=== PATIENT | male | born 1955 | race Caucasian/White ===

== ENCOUNTER 2021-07-09 14:15 | Inpatient (IN) | payer BC ==
[~2021-07-09] VITALS: Ht 175.3 cm; Wt 84.4 kg
[~2021-07-09 14:15] MED LIST: ZOFRAN ODT4 MG PO
[2021-07-09 14:20] VITALS: BP 135/65
[2021-07-09 15:02] LABS: HEMATOCRIT 36.9 % (42.0-52.0); HEMOGLOBIN 12.7 gm/dL (14.0-18.0); MCHC 34.4 g/dL (28.0-37.0); MCV 87.2 fL (80.0-100.0); MPV 8.1 fl. (7.2-11.1); NUCLEATED RBCS 0 /100WBC; PLATELET COUNT* 376 thou/uL (150-400); RBC 4.23 mil/uL (4.50-6.00); RDW-CV 13.8 % (10.5-14.5); WBC 13.2 thou/uL (4.0-11.0)
[2021-07-09 15:23] LABS: CREATININE 1.1 mg/dL (0.6-1.3)
[2021-07-09 15:27] LABS: ALBUMIN 2.6 g/dL (3.4-5.0); TOTAL BILIRUBIN 0.8 mg/dL (<0.1-1.0); TOTAL PROTEIN 7.4 g/dL (6.4-8.2)
[2021-07-09 15:36] LABS: ABSOLUTE LYMPHOCYTES 0.8 thou/uL (0.8-5.3); ABSOLUTE MONOCYTES 0.8 thou/uL (0.0-1.2); ABSOLUTE NEUTROPHILS 11.6 thou/uL (1.6-8.1)
[2021-07-09 15:37] LABS: PLATELET ESTIMATE ADEQUATE
--- NOTE | 2021-07-09 15:56 | EKG ---
[place] [address] ELECTROCARDIOGRAM REPORT Name: JOSE CASTILLO Room: [facility].#: [id number] Admission: Attend Phys: Discharge: Date of : 57 Date of Service: 07/09/21 1447 Report #: [id number] THIS REPORT FOR: //name// [facility] ED Test Date: 2021-07-09 Test Time: 14:47:57 Pat Name: JOSE CASTILLO Department: Room: Gender: M Journeyman Millwright: DARLEEN : 1955 Requested By: Ishan Welch Order Number: [id number] MD: Blaine Joya Measurements Intervals [place] Rate: 85 P: 48 [place]: 137 QRS: 27 QRSD: 92 T: 73 QT: 350 QTc: 417 Interpretive Statements Sinus rhythm Mild ST segment elevation in the inferior leads with subtle ST segment depression lateral leads; ischemia must be considered Baseline wander in lead(s) V1 Compared to ECG 10/01/2011 03:38:39 ST (T wave) deviation now present and ischemia must be considered Electronically Signed On 07-09-2021 15:56:00 DECAL TRANSFERRER by Blaine Joya [email or web address] <ELECTRONICALLY SIGNED> By: Blaine Joya MD, [facility] 07/09/21 1556 1447 1447 Blaine Joya MD, [facility] /EPI
[2021-07-09 18:32] VITALS: BP 114/73
[2021-07-09 22:30] VITALS: BP 110/70
[2021-07-10 02:59] VITALS: BP 108/83
[2021-07-10 03:31] LABS: HEMATOCRIT 35.6 % (42.0-52.0); HEMOGLOBIN 12.5 gm/dL (14.0-18.0); MCV 85.8 fL (80.0-100.0); MPV 7.8 fl. (7.2-11.1); RBC 4.15 mil/uL (4.50-6.00); RDW-CV 13.7 % (10.5-14.5); WBC 9.9 thou/uL (4.0-11.0)
[2021-07-10 03:56] LABS: ALBUMIN 2.2 g/dL (3.4-5.0); ALKALINE PHOSPHATASE 64 U/L (46-116); ANION GAP 8 mmol/L (7-16); BUN 26 mg/dL (7-18); CALCIUM 8.5 mg/dL (8.5-10.1); CHLORIDE 99 mmol/L (98-107); CREATININE 1.1 mg/dL (0.6-1.3); GLUCOSE 157 mg/dL (70-99); POTASSIUM 4.3 mmol/L (3.5-5.1); SGOT 125 U/L (15-37); SGPT 94 U/L (30-65); SODIUM 132 mmol/L (136-145); TOTAL BILIRUBIN 0.4 mg/dL (<0.1-1.0); TOTAL PROTEIN 7.7 g/dL (6.4-8.2)
[2021-07-10 03:57] LABS: CO2 < 5 mmol/L (21-32)
[2021-07-10 06:25] LABS: BE -2.4 mmol/L (-2 to +3); PO2 64.4 mmHg (75.0-100.0); pH 7.425 (7.340-7.450)
[2021-07-10 08:00] VITALS: BP 104/58
[2021-07-10 12:00] VITALS: BP 112/84
--- NOTE | 2021-07-10 13:05 | 2DMMODE ---
[place] [address] 2 D/M-MODE ECHOCARDIOGRAM Name: JOSE CASTILLO Room: [place] [address] ADM IN [place]#: [id number] Admission: 07/09/21 Attend Phys: Marco Pelaez Discharge: Date of : 57 Date of Service: 07/10/21 1304 Report #: [id number] THIS REPORT FOR: cc: FAM - Family physician unknown FAM - Family physician unknown Blaine Joya MD [facility] ~ APPROVED REPORT Study performed: 07/10/2021 11:30:41 EXAM: Comprehensive 2D, Doppler, and color-flow Echocardiogram Patient Location: In-Patient Room #: er Status: routine BSA: 2.02 HR: 92 bpm BP: 104/58 mmHg Rhythm: Atrial Fibrillation Other Information Study Quality: Good Indications Atrial Fibrillation Dyspnea 2D Dimensions IVSd: 13.09 (7-11mm) LVOT Diam: 21.11 (18-24mm) LVDd: 43.65 mm PWd: 11.76 (7-11mm) Ascending Ao: 33.77 (22-36mm) LVDs: 24.81 (25-40mm) Aortic Root: 32.84 mm Volumes Left Atrial Volume (Systole) LA ESV Index: 14.40 mL/m2 Aortic Valve AoV Peak Nirav.: 0.84 m/s AO Peak Gr.: 2.83 mmHg LVOT Max P.98 mmHg AO Mean Gr.: 1.60 mmHg LVOT Mean P.01 mmHg LVOT Max V: 0.70 m/s AO V2 VTI: 15.04 cm LVOT Mean V: 0.46 m/s ANOOP (VTI): 3.17 cm2 LVOT V1 VTI: 13.62 [place] [address] 2 D/M-MODE ECHOCARDIOGRAM Name: JOSE CASTILLO Room: [place] [address] ADM IN .R.#: [id number] Admission: 07/09/21 Attend Phys: Marco Pelaez Discharge: Date of : 57 Date of Service: 07/10/21 1304 Report #: [id number] TDI Lateral E' Nirav.: 0.13 m/s Pulmonary Valve PV Peak Nirav.: 0.70 m/s PV Peak Gr.: 1.99 mmHg Tricuspid Valve RAP Estimate: 5.00 mmHg TR Peak Gr.: 15.79 mmHg RVSP: 20.00 mmHg PA Pressure: 20.00 mmHg Left Ventricle The left ventricle is normal size. There is normal LV segmental wall motion. There is normal left ventricular wall thickness. Left ventricular systolic function is normal. The left ventricular ejection fraction is within the normal range. LVEF is 50-55%. This study is not technically sufficient to allow evaluation of the LV diastolic function due to atrial fibrillation. Right Ventricle The right ventricle is normal size. The right ventricular systolic function is normal. Atria The left atrium size is normal. The right atrium size is normal. Aortic Valve The aortic valve is normal in structure. No aortic regurgitation is present. There is no aortic valvular stenosis. Mitral Valve The mitral valve is normal in structure. Mild mitral regurgitation. No evidence of mitral valve stenosis. Tricuspid Valve The tricuspid valve is normal in structure. Trace to mild tricuspid regurgitation. No pulmonary hypertension. Pulmonic Valve The pulmonary valve is normal in structure. There is no pulmonic valvular regurgitation. Great Vessels The aortic root is normal in size. IVC [place] [address] 2 D/M-MODE ECHOCARDIOGRAM Name: JOSE CASTILLO Room: [address] IN [facility].#: [id number] Admission: 07/09/21 Attend Phys: Marco Pelaez Discharge: Date of : 57 Date of Service: 07/10/21 1304 Report #: [id number] collapses >50% with inspiration. Pericardium There is no pericardial effusion. <Conclusion> The left ventricle is normal size. There is normal left ventricular wall thickness. Left ventricular systolic function is normal. The left ventricular ejection fraction is within the normal range. LVEF is 50-55%. This study is not technically sufficient to allow evaluation of the LV diastolic function due to atrial fibrillation. The right ventricle is normal size. The left atrium size is normal. The aortic valve is normal in structure. The mitral valve is normal in structure. Mild mitral regurgitation. The tricuspid valve is normal in structure. Trace to mild tricuspid regurgitation. No pulmonary hypertension. IVC is normal in size and collapses >50% with inspiration. There is no pericardial effusion. There is normal LV segmental wall motion. <ELECTRONICALLY SIGNED> By: Blaine Joya MD, FACC 07/10/21 1304 1304 1304 Blaine Joya MD, FACC /INF
[2021-07-10 16:30] VITALS: BP 122/94
[2021-07-10 19:25] VITALS: BP 122/94
[2021-07-10 20:00] VITALS: BP 123/84
[2021-07-11] VITALS (7 sets, daily range): BP systolic 120–140; BP diastolic 80–91
[2021-07-11 04:38] LABS: CHOLESTEROL 163 mg/dL (<200); HDL CHOLESTEROL 28 mg/dL (>40); LDL CHOLESTEROL 91 mg/dL (<100); TC:HDL 5.8 Ratio (Not establshd); TRIGLYCERIDE 220 mg/dL (<150); VLDL 44 mg/dL (<40)
[2021-07-11 04:56] LABS: SERUM ASSESSMENT CLEAR
[2021-07-11] MEDS ORDERED: LOPERAMIDE 2 MG2 M1 PO (05:35)
[2021-07-12 04:00] VITALS: BP 117/74
[2021-07-12 07:51] VITALS: BP 124/78
[2021-07-12 12:00] VITALS: BP 150/94
[2021-07-12 16:12] VITALS: BP 140/65
[2021-07-12 20:00] VITALS: BP 148/87
[2021-07-13] VITALS (8 sets, daily range): BP systolic 111–156; BP diastolic 69–112
--- NOTE | 2021-07-13 10:03 | CON ---
[address] [address] CONSULTATION Name: CASTILLOJOSE JAMIL Room: [address] IN M.R.#: [id number] Admission: 07/09/21 Attend Phys: Christian Nieto Discharge: Date of : 57 Report #: [id number] THIS REPORT FOR: cc: FAM - Family physician unknown FAM - Family physician unknown Noel Lo MD [facility] ~ DATE OF CONSULTATION: 07/09/2021 CARDIOLOGY CONSULTATION INDICATION: Elevated troponin consistent with non-ST elevation myocardial infarction. HISTORY OF PRESENT ILLNESS: The patient is a 65-year-old gentleman admitted through the Emergency Room with complaints of increasing shortness of breath for the last week and a half or so. The patient is COVID-19 positive and has x-ray consistent with COVID pneumonia. He reports cough that is nonproductive. Reports low-grade fever. He denies any chest pain. The patient does not have a primary physician. He is on no medications. He denies any medical allergies. PAST MEDICAL HISTORY: There is no significant past medical history. He states that he has been relatively healthy. HOME MEDICATIONS: None. ALLERGIES: PENICILLIN AND SULFA. SOCIAL HISTORY: He is a lifelong nonsmoker. REVIEW OF SYSTEMS: Positive for anorexia, fatigue, shortness of breath. PHYSICAL EXAMINATION: VITAL SIGNS: Stable. Blood pressure 135/65, pulse is 88 and regular. GENERAL: This is a pleasant gentleman who does not appear to be in distress. HEENT: Head is normocephalic, atraumatic. Extraocular muscles intact. Mucous membranes are moist. NECK: Shows no jugular venous distention. CHEST: Reveals diminished breath sounds. I do not appreciate wheezes or rales. CARDIAC: Reveals a regular rhythm with normal S1 and S2. I do not appreciate gallop or murmur. ABDOMEN: Reveals normal bowel sounds. The abdomen is soft, nontender. EXTREMITIES: Shows no edema. SKIN: Warm and dry. DIAGNOSTIC DATA: A 12-lead EKG shows sinus rhythm with [place] [address] CONSULTATION Name: JOSE CASTILLO Room: [address] IN [facility].#: [id number] Admission: 07/09/21 Attend Phys: Christian Nieto Discharge: Date of : 57 Report #: [id number] consistent with early repolarization. No other acute changes noted. LABORATORY DATA: Reviewed. Sodium 131, potassium 5.0, chloride 94, bicarbonate 25, BUN 23, creatinine 1.1, serum glucose 113, AST 151, calcium 8.0, ALT 104, alkaline phosphatase 71, albumin 2.6, total protein 7.4, EGFR 67. High sensitivity troponin on arrival 5395 and subsequently 6449. Subsequent troponin pending. White blood cell count 13.2, hemoglobin 12.7, platelet count 176,000. Chest x-ray, bilateral diffuse multifocal COVID pneumonia. IMPRESSION AND RECOMMENDATIONS: 1. Elevated troponin consistent with non-ST elevation myocardial infarction. The patient is not having symptoms at this point in time to suggest acute coronary syndrome. We will follow up troponin and obtain echocardiogram. Pending echo results, we will decide whether invasive or noninvasive evaluation is required. 2. COVID-19 pneumonia, per hospitalist. 3. Deep venous thrombosis prophylaxis will be started. <ELECTRONICALLY SIGNED> By: Noel Lo MD, FACC 07/13/21 1003 1714 2032[facility] Centerjustina Lo MD, FACC /nt
[2021-07-13 11:50] LABS: HEMATOCRIT 39.7 % (42.0-52.0); HEMOGLOBIN 13.7 gm/dL (14.0-18.0); MCH 30.2 pg (26.0-34.0); MCHC 34.5 g/dL (28.0-37.0); MCV 87.5 fL (80.0-100.0); MPV 8.5 fl. (7.2-11.1); RBC 4.54 mil/uL (4.50-6.00); RDW-CV 13.7 % (10.5-14.5); WBC 13.4 thou/uL (4.0-11.0)
[2021-07-13 12:05] LABS: CALCIUM 8.6 mg/dL (8.5-10.1); CREATININE 1.1 mg/dL (0.6-1.3)
[2021-07-14 04:00] VITALS: BP 130/84
[2021-07-14 08:00] VITALS: BP 148/78
[2021-07-14] MEDS ORDERED: ELIQUIS5 MG PO (10:15)
[2021-07-14] MEDS ORDERED: PACERONE 200 M200 M1 PO (10:15)
[2021-07-14 13:24] VITALS: BP 157/89
[2021-07-14 16:14] VITALS: BP 149/88; BP 165/91; BP 173/92
[2021-07-14 16:30] VITALS: BP 147/81
[2021-07-14] MEDS ORDERED: TESSALON PERLE100 MG PO (18:27)
[2021-07-14] MEDS ORDERED: VIBRAMYCIN 100100 MG PO (18:27)
[2021-07-14] MEDS ORDERED: PROAIR HFA8.5 GM INH (18:27)
[2021-07-14] MEDS ORDERED: PREDNISONE 10 M10 MG PO (18:27)
[2021-07-14 19:40] VITALS: BP 141/82
[2021-07-15] VITALS: BP 155/94
[2021-07-15 04:00] VITALS: BP 145/89
[2021-07-15 08:00] VITALS: BP 122/94
[2021-07-15 14:54] VITALS: BP 122/94
[2021-07-15 16:16] VITALS: BP 122/94
--- NOTE | 2021-07-16 10:37 | EKG ---
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 : 1955 Requested By: Noel Lo Order Number: [id number] Reading MD: Noel Lo Measurements Intervals [place] Rate: 72 P: 43 [place]: 166 QRS: -10 QRSD: 89 T: 162 QT: 487 QTc: 534 Interpretive Statements Sinus rhythm Inferior infarct, old Lateral leads are also involved Prolonged QT interval Artifact in lead(s) II,III,aVF Compared to ECG 07/09/2021 14:47:57 Myocardial infarct finding now present Prolonged QT interval now present ST (T wave) deviation no longer present Possible ischemia no longer present Electronically Signed On 07-16-2021 10:37:17 OCCUPATIONAL THERAPY ASSIST by Noel Lo [email or web address] <ELECTRONICALLY SIGNED> By: Noel Lo MD, FACC 07/16/21 1037 7 7 Noel Lo MD, [facility] /EPI
== END 2021-07-15 16:01 | disposition home or self-care (01) | DRG 177 ==
LOC: M.ERS 14:15 → M.TBA-ER 15:49 → M.2W 15:49 → M.ORTHSURG 07-10 19:52 → M.2W 07-15 11:08
PROVIDERS: Emergency Medicine Emergency Medical Services; Internal Medicine; Internal Medicine Cardiovascular Disease; ADMIT Internal Medicine; ATTEND Internal Medicine
PROC: 5A0935A Assistance with Respiratory Ventilation, Less than 24 Consecutive Hours, High Flow/Velocity Cannula (ICD-10-PCS; principal; 2021-07-11)
PROC: XW13325 Transfusion of Convalescent Plasma (Nonautologous) into Peripheral Vein, Percutaneous Approach, New Technology Group 5 (ICD-10-PCS; 2021-07-14)
DX: U07.1 COVID-19 (principal); J12.82 Pneumonia due to coronavirus disease 2019; J96.01 Acute respiratory failure with hypoxia; I21.4 Non-ST elevation (NSTEMI) myocardial infarction; B17.9 Acute viral hepatitis, unspecified; I48.91 Unspecified atrial fibrillation; E83.42 Hypomagnesemia; Z88.0 Allergy status to penicillin; Z88.2 Allergy status to sulfonamides